=== PATIENT | female | born 1975 | race Caucasian/White ===

== ENCOUNTER → 2016-06-18 | Outpatient (CLI) | payer BC ==
[~2016-06-18] MED LIST: ANT25 PO
[2016-06-18 12:39] LABS: THYROID STIMULATING HORMONE 1.02 uIu/ml (0.300-4.500)
--- NOTE | 2016-06-23 09:33 | CODING QUERY MEDICAL NECESSITY ---
SUPPORTING DIAGNOSIS NEEDED A supporting diagnosis is required for the test/procedure performed on this patient in order for us to be reimbursed by the patient's insurance. Please provide a supporting diagnosis for the following test/procedure listed below next to the test name along with your signature. *If there is no additional diagnosis for this patient that would support the following test/procedure please document that below next to the test/procedure. Test(s)/Procedure(s) that require a supporting diagnosis: * VITAMIN D 25-HYDROXY DIAGNOSIS: * DOS: 06/18/16 Provider Signature: Date: Thank you Kristel Ernandez Health Information Management Once completed, please kindly fax back to [phone] For questions please call [phone]
== END | disposition home or self-care (01) ==
LOC: C.LAB1850 10:44
DX: E03.8 Other specified hypothyroidism (principal); E55.9 Vitamin D deficiency, unspecified

== ENCOUNTER → 2016-08-17 | Outpatient (CLI) | payer BC, OTHER ==
--- NOTE | 2016-08-17 14:24 | DIAGNOSTIC IMAGING REPORT ---
FOREARM 2 VIEWS ROUTINE CLINICAL HISTORY: RIGHT FOREARM pain COMPARISON: None. DISCUSSION: The bones and joint spaces appear intact. There is no evidence of fracture, dislocation or bony disease. There is no evidence for soft tissue swelling. IMPRESSION: Negative study. Electronically signed by: Philpi Carlson M.D. 08/17/2016 2:23 PM Dictated Date/Time: 08/17/2016 2:23 PM
--- NOTE | 2016-08-17 14:25 | DIAGNOSTIC IMAGING REPORT ---
RIGHT WRIST 5 VIEWS CLINICAL HISTORY: Right wrist pain. FINDINGS: 5 views of the right wrist are obtained. No prior studies are available for comparison at the time of dictation. The skeletal structures are well mineralized. There is no radiographic evidence of right wrist fracture. The joint spaces of the wrist are preserved. The overlying soft tissues are within normal limits. IMPRESSION: Unremarkable radiographic assessment of the right wrist. Electronically signed by: Jordan Castillo M.D. 08/17/2016 2:23 PM Dictated Date/Time: 08/17/2016 2:22 PM
== END | disposition home or self-care (01) ==
LOC: C.RAD 13:49
PROVIDERS: ATTEND Family Medicine
DX: M79.601 Pain in right arm (principal)

== ENCOUNTER → 2017-05-31 | Outpatient (CLI) | payer OTHER ==
[2017-05-31 09:52] LABS: T3 FREE 2.73 pg/ml (2.30-4.20)
== END | disposition home or self-care (01) ==
LOC: C.LAB1850 08:01
DX: E03.8 Other specified hypothyroidism (principal)